=== PATIENT | female | born 1965 | race Caucasian/White ===

== ENCOUNTER 2017-12-09 10:14 | Emergency (ER) | payer BC ==
[2017-12-09 10:36] VITALS: BP 156/97; PULSE 83; O2SAT 98
--- NOTE | 2017-12-09 10:43 | ERPHSYRPT ---
- History of Present Illness Time Seen by Provider: 12/09/17 10:37 Source: patient Exam Limitations: no limitations Patient Subjective Stated Complaint: seen at [facility]. 2 weeks ago for sorethroat.. seen at [facility] last week. today was at [facility] for right ear pain and they sent here here for further eval. noted pain in right eart. noted swelling to right side of face. staets has difficulty closing eye lid 2 days ago.. numbness to the right upper lip.no difficulty speaking, swallowing. BEASLEY. senies other symptom. Triage Nursing Assessment: seen at [facility]. 2 weeks ago for sorethroat.. seen at [facility] last week. today was at [facility] for right ear pain and they sent here here for further eval. noted pain in right eart. noted swelling to right side of face. staets has difficulty closing eye lid 2 days ago.. numbness to the right upper lip.no difficulty Physician History: 52-year-old white female arrives with complaint of right ear pain times approximately 3 days, paresthesias to the right side of the nose right side of the upper lip, right side of the face for 3-4 days. She states she's noted slow closing of the right eye since yesterday. She states she's been having intermittent pain in her right ear for 2-3 days. Patient was seen by [facility] prior to arrival noted to have slow closing of the right eyelid. Patient was recently treated with steroids by Dr. Boswell for sore throat. Past medical history includes hypothyroidism. Past surgical history includes , hysterectomy. Social history patient denies tobacco, alcohol or illicit drug use. Timing/Duration: other (paresthesia face right ear pain 3-4 days slow closing right eye since yesterday) Modifying Factors: Improves With: nothing Associated Symptoms: other (paresthesia to face right side right ear pain slow closing right eye), No nausea, No vomiting, No abdominal pain, No shortness of breath, No heartburn, No diaphoresis, No cough, No chills, No chest pain, No fever, No headaches, No loss of appetite, No malaise, No rash, No syncope, No seizure, No weakness Allergies/Adverse Reactions: erythromycin base Allergy (Verified 11/20/15 14:05) Penicillins Allergy (Verified 11/20/15 14:05) Home Medications: Levothyroxine Sodium 150 Mcg [Synthroid 150 Mcg] 150 mcg PO DAILY 11/20/15 [History] Hx Tetanus, Diphtheria Vaccination/Date Given: No Hx Influenza Vaccination/Date Given: No Hx Pneumococcal Vaccination/Date Given: No - Review of Systems Constitutional: No Fever, No Chills Eyes: Other (right eye slow closing since yesterday), No Discharge, No Eye Pain , No Eye Redness, No Itchy, No Photophobia, No Tearing, No Vision Changes, No Double Vision, No Foreign Body Sensation Ears, Nose, & Throat: Ear Pain (right ear pain), Throat Pain (throat pain 2 weeks ago resolving), No Ear Discharge, No Hearing Changes, No Tinnitus, No Nose Pain, No Nose Congestion, No Nose Discharge, No Sinus Drainage, No Epistaxis, No Mouth Pain, No Mouth Swelling, No Loose Teeth, No Throat Swelling , No Hoarse, No Painful Swallowing, No Snoring Respiratory: No Cough, No Dyspnea Cardiac: No Chest Pain, No Edema, No Syncope Abdominal/Gastrointestinal: No Abdominal Pain, No Nausea, No Vomiting, No Diarrhea Genitourinary Symptoms: No Dysuria Musculoskeletal: No Back Pain, No Neck Pain Skin: No Rash Neurological: Other (paresthesia right side of nose and face) Psychological: No Symptoms Endocrine: No Symptoms All Other Systems: Reviewed and Negative - Past Medical History Pertinent Past Medical History: Yes Endocrine Medical History: Hypothyroidism - Past Surgical History Past Surgical History: Yes Female Surgical History: Section, Hysterectomy - Social History Smoking Status: Never smoker Exposure to second hand smoke: No Drug Use: none Patient Lives Alone: No - Nursing Vital Signs Nursing Vital Signs: Initial Vital Signs Temperature 98.0 F 12/09/17 10:26 Pulse Rate 83 12/09/17 10:26 Respiratory Rate 18 12/09/17 10:26 Blood Pressure 156/97 12/09/17 10:26 O2 Sat by Pulse Oximetry 98 12/09/17 10:26 Pain Scale Pain Intensity 0 - Physical Exam General Appearance: other ( well-developed well-nourished white female in no acute distress, scarring right forehead (old) Eye Exam: PERRL/EOMI, eyes nml inspection, other (right eye upper eyelid slow to close) Ears, Nose, Throat Exam: other (White fluid behind right tm) Neck Exam: normal inspection, non-tender, supple, full range of motion Respiratory Exam: normal breath sounds, lungs clear, No respiratory distress Cardiovascular Exam: regular rate/rhythm, normal heart sounds, normal peripheral pulses Gastrointestinal/Abdomen Exam: soft, normal bowel sounds, No tenderness, No mass Back Exam: normal inspection, normal range of motion, No CVA tenderness, No vertebral tenderness Extremity Exam: normal inspection, normal range of motion, pelvis stable Neurologic Exam: alert, oriented x 3, cooperative, sprayer automatic spray machine II-XII nml as tested, normal mood/affect, nml cerebellar function, nml station & gait, sensation nml, other (Patient is alert, oriented 3, cranial nerves II through XII intact, normal finger to nose, conductor sleeping car equal and symmetrical 2/4. No obvious facial nerve deficits however patient with scarring right forehead.No pronator drift sensation intact to all extremities), No motor deficits Skin Exam: normal color, warm, dry, No rash SpO2 Interpretation: normal (98%) SpO2: 98 Oxygen Delivery: Room Air - Course Nursing assessment & vital signs reviewed: Yes - Radiology Exams Chest X-ray Interpretation: Discussed w/ radiologist (normal heart, lungs and bony thorax) - CT Exams Head CT Interpretation: Negative (normal head ct) Ordered Tests: Active Orders 24 hr Category Date Time Status CHEST 1 VIEW (PORTABLE) Stat Exams 12/09/17 10:56 Completed HEAD WITHOUT CONTRAST [CT] Stat Exams 12/09/17 10:48 Completed - Progress Progress: improved Progress Note: 12/09/17 11:40 52-year-old white female who had had a sore throat approximately 2 weeks ago she 's been having right ear pain for 4 days paresthesia of the right side of the face especially the upper lip in the right side of the nose for 3-4 days states she was slow to close her right eye since yesterday. She was seen at [facility] noted to have slow closing of the right eyes sent to the emergency room. On physical examination patient has scarring of her right forehead making evaluation of a early loss of contractions of musculature in the right side of the difficult to evaluate. She does have slow closing of her right eye. I cannot appreciate obvious facial droop. Neurologically she is otherwise intact. I have done a head CT of this patient which is normal as well as a x-ray of her chest to rule out Angelique's which is also normal. I discussed the patient's case with Dr. Omero Boswell he states that patient had a markedly swollen throat in the past however she did not have strep he did state that she had increased monocytes. 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 Will go ahead and place patient on acyclovir 400 mg 5 times a day for [address] patient on a tapering dose of prednisone. Patient to follow-up with Dr. Boswell. Patient has been advised if she has trouble closing her right eye that she needs to consider taping it at night and/or using Lacri-Lube in the right eye. - Departure Time of Disposition: 11:43 Departure Disposition: Home Clinical Impression: right lid lag, Singleton's palsy Condition: Fair Critical Care Time: No Referrals: SOLANGE SIMS [Primary Care Provider] - Instructions: Singleton's Palsy (DC) Additional Instructions: Return home. Tapering dose of prednisone as directed. Acyclovir 400 mg 5 times a day for 10 days. Use Lacri-Lube in your right eye as needed. Considering taping your right eye shut at night if you cannot close it. Follow-up with Dr. Boswell, call and schedule an appointment. Return for acute distress or for severe symptoms.
--- NOTE | 2017-12-09 11:10 | XRAY ---
Indication: Facial numbness. Comparison: February 09, 2006. Portable chest again demonstrates normal heart, lungs, and bony thorax.
--- NOTE | 2017-12-09 11:12 | XRAY ---
Indication: Facial numbness. Right eyelid "lag." Multiple contiguous axial images obtained through the head without contrast. Comparison: None Normal appearing brain parenchyma, ventricles, and bony calvarium. Visualized paranasal sinuses and mastoid air cells are clear. Impression: Normal CT head without contrast exam. CT DI 69.52
== END 2017-12-09 11:58 | disposition home or self-care (01) ==
LOC: ED 10:14 → EEVIPCON 10:14 → ED 11:58
DX: H02.531 Eyelid retraction right upper eyelid (principal); G51.0 Bell's palsy; H92.01 Otalgia, right ear; E03.9 Hypothyroidism, unspecified
CPT/HCPCS: 70450; 71045; 99284

== ENCOUNTER 2018-07-16 09:39 | Emergency (ER) | payer BC, OTHER ==
--- NOTE | 2018-07-16 09:54 | ERPHSYRPT ---
- History of Present Illness Time Seen by Provider: 07/16/18 09:51 Source: patient Exam Limitations: no limitations Physician History: 53 y/o white female with h/o asthma is an employee at the [employer] and was exposed to unknown chemical exposure applied on mail for inmate. mail paper had oily substance. occurred [employer]. pt used her inhaler twice at the [employer]. sx include shakiness, left upper ext heaviness and numbness, throat tightness, tongue numbness,and sore throat. denies cp, denies abd pain, denies n/v/d. strong chemical odor Severity: mild Modifying Factors: Improves With: nothing Associated Symptoms: cough, No nausea, No vomiting, No abdominal pain, No shortness of breath, No weakness Allergies/Adverse Reactions: erythromycin base Allergy (Verified 07/16/18 10:18) Penicillins Allergy (Verified 07/16/18 10:18) Home Medications: Levothyroxine Sodium [Synthroid] 175 mcg PO DAILY 07/16/18 [History] Meloxicam 1 tab PO DAILY 07/16/18 [History] - Review of Systems Constitutional: No Symptoms Eyes: No Symptoms Ears, Nose, & Throat: No Symptoms Respiratory: Cough, No Dyspnea Cardiac: No Symptoms Abdominal/Gastrointestinal: No Symptoms, No Abdominal Pain, No Nausea, No Vomiting, No Diarrhea Genitourinary Symptoms: No Symptoms, No Dysuria, No Frequency, No Hematuria Musculoskeletal: No Symptoms Skin: No Symptoms Neurological: Other (left arm heaviness; shakiness) Psychological: No Symptoms Endocrine: No Symptoms Hematologic/Lymphatic: No Symptoms Immunological/Allergic: No Symptoms All Other Systems: Reviewed and Negative - Past Medical History Pertinent Past Medical History: Yes Neurological History: No Pertinent History ENT History: No Pertinent History Cardiac History: No Pertinent History Respiratory History: Asthma Endocrine Medical History: No Pertinent History Musculoskeletal History: No Pertinent History GI Medical History: No Pertinent History History: No Pertinent History Psycho-Social History: No Pertinent History - Past Surgical History Neuro Surgical History: No Pertinent History Cardiac: No Pertinent History Respiratory: No Pertinent History Gastrointestinal: No Pertinent History Genitourinary: No Pertinent History Musculoskeletal: No Pertinent History Female Surgical History: No Pertinent History - Nursing Vital Signs Nursing Vital Signs: Initial Vital Signs Temperature 97.6 F 07/16/18 10:06 Pulse Rate 73 07/16/18 10:06 Respiratory Rate 14 07/16/18 10:06 Blood Pressure 165/101 07/16/18 10:06 O2 Sat by Pulse Oximetry 100 07/16/18 10:06 Pain Scale Pain Intensity 0 - Physical Exam General Appearance: mild distress, alert, anxiety Eye Exam: PERRL/EOMI, eyes nml inspection Ears, Nose, Throat Exam: normal ENT inspection, moist mucous membranes Neck Exam: normal inspection, non-tender, supple, full range of motion Respiratory Exam: normal breath sounds, lungs clear, airway intact, No chest tenderness, No respiratory distress, No accessory muscle use, No rhonchi, No wheezing, No stridor Cardiovascular Exam: regular rate/rhythm, normal heart sounds, normal peripheral pulses Gastrointestinal/Abdomen Exam: soft, normal bowel sounds, No tenderness, No guarding Pelvic Exam: not done Rectal Exam: not done Back Exam: normal inspection, normal range of motion, CVA tenderness Extremity Exam: normal inspection, normal range of motion, pelvis stable Neurologic Exam: alert, oriented x 3, cooperative, library circulation technician II-XII nml as tested Skin Exam: normal color, warm, dry Lymphatic Exam: No adenopathy SpO2 Interpretation: normal O2 Delivery: Room Air - Course Nursing assessment & vital signs reviewed: Yes EKG Interpreted by Me: RATE (77), Sinus Rhythm, NORMAL AXIS, Right Bundle Branch Block, Other (left ant fascicular block) Ordered Tests: Active Orders 24 hr Category Date Time Status Modeling Teacher STAT Care 07/16/18 10:00 Active Clean Catch Urine Specimen STAT Care 07/16/18 09:59 Active EKG-ER Only STAT Care 07/16/18 09:59 Active IV Insertion STAT Care 07/16/18 09:59 Active NPO (ED) STAT Care 07/16/18 09:59 Active Oxygen-ED Only Nasal Cannula 2 lpm Care 07/16/18 09:59 Active CHEST 1 VIEW (PORTABLE) Stat Exams 07/16/18 09:59 Completed CBC W DIFF Stat Lab 07/16/18 10:08 Completed CMP Stat Lab 07/16/18 10:08 Completed MAGNESIUM Stat Lab 07/16/18 10:08 Completed UA W/RFX UR CULTURE Stat Lab 07/16/18 10:32 Completed Urine Triage Profile Stat Lab 07/16/18 11:35 Completed Peak Expiratory Flow Rate DAILY RT 07/16/18 10:18 Active Pulse Oximetry ROUTINE RT 07/16/18 10:18 Active Respiratory Therapy Assessment DAILY RT 07/17/18 10:18 Active Medication Summary Discontinued Medications Generic Name Dose Route Start Last Admin Trade Name Anthony HADDAD Reason Stop Dose Admin Acetaminophen 650 mg 07/16/18 10:51 07/16/18 10:56 Tylenol 325 Mg PO 07/16/18 10:52 650 mg STAT STA Administration Acetaminophen Confirm 07/16/18 10:54 Tylenol 325 Mg Administered 07/16/18 10:55 Dose 650 mg .ROUTE .STK-MED ONE Albuterol/Ipratropium Confirm 07/16/18 10:11 Duoneb 0.5-3 Mg/3 Ml Neb Administered 07/16/18 10:12 Dose 3 ml IH .STK-MED ONE Albuterol/Ipratropium 3 ml 07/16/18 10:18 07/16/18 10:18 Duoneb 0.5-3 Mg/3 Ml Neb IH 07/16/18 10:19 3 ml STAT ONE Administration Sodium Chloride Confirm 07/16/18 09:57 Sodium Chloride 0.9% 1000 Ml Administered 07/16/18 09:58 Dose 1,000 mls @ ud .ROUTE .STK-MED ONE Sodium Chloride Confirm 07/16/18 09:57 Sodium Chloride 0.9% 1000 Ml Administered 07/16/18 09:58 Dose 1,000 mls @ ud .ROUTE .STK-MED ONE Sodium Chloride 1,000 mls @ 999 mls/hr 07/16/18 09:59 07/16/18 11:36 Sodium Chloride 0.9% 1000 Ml IV 07/16/18 10:59 Infused .Q1H1M STA Infusion Methylprednisolone Sodium Succinate 125 mg 07/16/18 09:59 07/16/18 10:35 Solu-Medrol 125 Mg IV 07/16/18 10:00 125 mg STAT ONE Administration Methylprednisolone Sodium Succinate Confirm 07/16/18 10:34 Solu-Medrol 125 Mg Administered 07/16/18 10:35 Dose 125 mg .ROUTE .STK-MED ONE Ondansetron HCl 4 mg 07/16/18 10:00 07/16/18 10:35 Zofran 4 Mg/2 Ml Vial IV 07/16/18 10:01 4 mg STAT ONE Administration Ondansetron HCl Confirm 07/16/18 10:34 Zofran 4 Mg/2 Ml Vial Administered 07/16/18 10:35 Dose 4 mg .ROUTE .STK-MED ONE Lab/Rad Data: Laboratory Result Diagrams 07/16/18 10:08 07/16/18 10:08 Laboratory Results 07/16/18 07/16/18 07/16/18 Range/Units 11:35 10:32 10:08 WBC (4.0-10.5) K/mm3 RBC (4.1-5.4) M/mm3 Hgb (12.0-16.0) gm/dl Hct (35-47) % MCV (78-100) fl MCH (26-32) pg MCHC (32-36) g/dl RDW (11.5-14.0) % Plt Count (150-450) K/mm3 MPV (6-9.5) fl Gran % (36.0-66.0) % Eos # (Auto) (0-0.5) Absolute Lymphs (auto) (1.0-4.6) Absolute Monos (auto) (0.0-1.3) Lymphocytes % (24.0-44.0) % Monocytes % (0.0-12.0) % Eosinophils % (0.00-5.0) % Basophils % (0.0-0.4) % Absolute Granulocytes (1.4-6.9) Basophils # (0-0.4) Sodium 141 (137-145) mmol/L Potassium 3.5 (3.5-5.1) mmol/L Chloride 100 (98-107) mmol/L Carbon Dioxide 28 (22-30) mmol/L Anion Gap 15.9 H (5-15) MEQ/L BUN 16 (7-17) mg/dL Creatinine 0.89 (0.52-1.04) mg/dL Estimated GFR > 60.0 ML/MIN Glucose 104 (74-106) mg/dL Calcium 9.7 (8.4-10.2) mg/dL Magnesium 1.7 (1.6-2.3) mg/dL Total Bilirubin 0.60 (0.2-1.3) mg/dL AST 38 H (14-36) U/L ALT 32 (0-35) U/L Alkaline Phosphatase 71 (38-126) U/L Serum Total Protein 8.3 H (6.3-8.2) g/dL Albumin 4.7 (3.5-5.0) g/dL Urine Color YELLOW (YELLOW) Urine Appearance CLEAR (CLEAR) Urine pH 7.0 (5-6) Ur Specific [place] 1.004 (1.005-1.025) Urine Protein NEGATIVE (Negative) Urine Ketones NEGATIVE (NEGATIVE) Urine Blood NEGATIVE (0-5) John/ul Urine Nitrite NEGATIVE (NEGATIVE) Urine Bilirubin NEGATIVE (NEGATIVE) Urine Urobilinogen NEGATIVE (0-1) mg/dL Ur Leukocyte Esterase NEGATIVE (NEGATIVE) Urine WBC (Auto) NONE (0-5) /HPF Urine RBC (Auto) NONE (0-2) /HPF U Epithel Cells (Auto) RARE (FEW) /HPF Urine Bacteria (Auto) NONE SEEN (NEGATIVE) /HPF Urine Mucus (Auto) SLIGHT (NEGATIVE) /HPF Urine Culture Reflexed NO (NO) Urine Glucose NEGATIVE (NEGATIVE) mg/dL Urine Opiates Level NEGATIVE (NEGATIVE) Ur Methadone NEGATIVE (NEGATIVE) Urine Barbiturates NEGATIVE (NEGATIVE) Ur Phencyclidine (PCP) NEGATIVE (NEGATIVE) Urine Amphetamine NEGATIVE (NEGATIVE) U Benzodiazepine Level NEGATIVE (NEGATIVE) Urine Cocaine NEGATIVE (NEGATIVE) Urine Marijuana (THC) NEGATIVE (NEGATIVE) 07/16/18 Range/Units 10:08 WBC 5.0 (4.0-10.5) K/mm3 RBC 4.58 (4.1-5.4) M/mm3 Hgb 13.4 (12.0-16.0) gm/dl Hct 41.5 (35-47) % MCV 90.6 (78-100) fl MCH 29.3 (26-32) pg MCHC 32.3 (32-36) g/dl RDW 12.9 (11.5-14.0) % Plt Count 234 (150-450) K/mm3 MPV 9.4 (6-9.5) fl Gran % 52.5 (36.0-66.0) % Eos # (Auto) 0.37 (0-0.5) Absolute Lymphs (auto) 1.53 (1.0-4.6) Absolute Monos (auto) 0.44 (0.0-1.3) Lymphocytes % 30.8 (24.0-44.0) % Monocytes % 8.9 (0.0-12.0) % Eosinophils % 7.4 H (0.00-5.0) % Basophils % 0.4 (0.0-0.4) % Absolute Granulocytes 2.61 (1.4-6.9) Basophils # 0.02 (0-0.4) Sodium (137-145) mmol/L Potassium (3.5-5.1) mmol/L Chloride (98-107) mmol/L Carbon Dioxide (22-30) mmol/L Anion Gap (5-15) MEQ/L BUN (7-17) mg/dL Creatinine (0.52-1.04) mg/dL Estimated GFR ML/MIN Glucose (74-106) mg/dL Calcium (8.4-10.2) mg/dL Magnesium (1.6-2.3) mg/dL Total Bilirubin (0.2-1.3) mg/dL AST (14-36) U/L ALT (0-35) U/L Alkaline Phosphatase (38-126) U/L Serum Total Protein (6.3-8.2) g/dL Albumin (3.5-5.0) g/dL Urine Color (YELLOW) Urine Appearance (CLEAR) Urine pH (5-6) Ur Specific [place] (1.005-1.025) Urine Protein (Negative) Urine Ketones (NEGATIVE) Urine Blood (0-5) John/ul Urine Nitrite (NEGATIVE) Urine Bilirubin (NEGATIVE) Urine Urobilinogen (0-1) mg/dL Ur Leukocyte Esterase (NEGATIVE) Urine WBC (Auto) (0-5) /HPF Urine RBC (Auto) (0-2) /HPF U Epithel Cells (Auto) (FEW) /HPF Urine Bacteria (Auto) (NEGATIVE) /HPF Urine Mucus (Auto) (NEGATIVE) /HPF Urine Culture Reflexed (NO) Urine Glucose (NEGATIVE) mg/dL Urine Opiates Level (NEGATIVE) Ur Methadone (NEGATIVE) Urine Barbiturates (NEGATIVE) Ur Phencyclidine (PCP) (NEGATIVE) Urine Amphetamine (NEGATIVE) U Benzodiazepine Level (NEGATIVE) Urine Cocaine (NEGATIVE) Urine Marijuana (THC) (NEGATIVE) - Progress Progress: improved, re-examined Progress Note: 07/16/18 10:34 pt c/o chemical tasting sinus drainage 07/16/18 10:39 contacted [facility]. per internal affairs, they have quarnteed the letter in their evidence room. an official from [facility] to perform testing on letter at the facility. they are unable to provide me with a time frame for answer at to substance. 07/16/18 10:51 cxr-no acute process 07/16/18 13:37 pt feeling near normal. jamie pos. Counseled pt/family regarding: lab results, diagnosis, need for follow-up - Departure Departure Disposition: Home Clinical Impression: Exposure to chemical irritant Condition: Stable Critical Care Time: No Referrals: DOCTOR,NO FAMILY [Primary Care Provider] - Additional Instructions: drink plenty of fluids. take your medications as prescribed. return to ED if symptoms worsen. follow up with your primary doctor for persistent symptoms
[2018-07-16] MEDS ORDERED: Sodium Chloride 0.9% 1000 ML 1,000 ML ONE (09:57)
[2018-07-16] MEDS ORDERED: Sodium Chloride 0.9% 1000 ML 0 ML ONE (09:57)
[2018-07-16] MEDS ORDERED: DUONEB 0.5-3 MG/3 ml Neb IH ONE (10:11)
[2018-07-16 10:13] LABS: BASOPHIL % 0.4 % (0.0-0.4); Basophil (Absolute #) 0.02 (0-0.4); Eosinophil % 7.4 % (0.00-5.0); Eosinophil (Absolute #) 0.37 (0-0.5); Granulocyte Absolute (ANC) 2.61 (1.4-6.9); Granulocytes % 52.5 % (36.0-66.0); Hematocrit 41.5 % (35-47); Hemoglobin 13.4 gm/dl (12.0-16.0); Lymphocyte (Absolute #) 1.53 (1.0-4.6); Lymphocytes % 30.8 % (24.0-44.0); Mean Cell Volume 90.6 fl (78-100); Mean Corpuscular Hemoglobin 29.3 pg (26-32); Mean Corpuscular Hgb Concent. 32.3 g/dl (32-36); Mean Platelet Volume 9.4 fl (6-9.5); Monocyte (Absolute #) 0.44 (0.0-1.3); Monocytes % 8.9 % (0.0-12.0); Platelet Count 234 K/mm3 (150-450); Red Blood Count 4.58 M/mm3 (4.1-5.4); Red Cell Distribution Width 12.9 % (11.5-14.0)
[2018-07-16] MEDS: DUONEB 0.5-3 MG/3 ml Neb IH ONE (10:18)
[2018-07-16 10:26] LABS: ALBUMIN 4.7 g/dL (3.5-5.0); ALKALINE PHOSPHATASE 71 U/L (38-126); ANION GAP 15.9 MEQ/L (5-15); BLOOD UREA NITROGEN 16 mg/dL (7-17); CHLORIDE 100 mmol/L (98-107); Calcium 9.7 mg/dL (8.4-10.2); Carbon Dioxide 28 mmol/L (22-30); Creatinine 1 0.89 mg/dL (0.52-1.04); Glucose 104 mg/dL (74-106); MAGNESIUM 1.7 mg/dL (1.6-2.3); Potassium 3.5 mmol/L (3.5-5.1); SGOT/AST 38 U/L (14-36); SGPT/ALT 32 U/L (0-35); SODIUM 141 mmol/L (137-145); Total Protein 8.3 g/dL (6.3-8.2)
--- NOTE | 2018-07-16 10:31 | XRAY ---
Indication: Unknown chemical exposure. Comparison: None Portable chest demonstrates a few tiny calcified granulomas. Remaining heart, lungs, and bony thorax normal.
[2018-07-16] MEDS: Sodium Chloride 0.9% 1000 ML 1,000 ML IV STA (10:33)
[2018-07-16] MEDS ORDERED: solu-MEDROL 125 MG ONE (10:34)
[2018-07-16] MEDS ORDERED: Zofran 4 MG/2 ML VIAL ONE (10:34)
[2018-07-16] MEDS: Zofran 4 MG/2 ML VIAL IV ONE (10:35)
[2018-07-16] MEDS: solu-MEDROL 125 MG IV ONE (10:35)
[2018-07-16 10:48] LABS: Appearance CLEAR (CLEAR); Bilirubin NEGATIVE (NEGATIVE); Blood NEGATIVE Ery/ul (0-5); Epithelial Cells RARE /HPF (FEW); Glucose NEGATIVE (NEGATIVE); Ketones NEGATIVE (NEGATIVE); Leukocyte Esterase NEGATIVE (NEGATIVE); Mucus SLIGHT /HPF (NEGATIVE); Nitrite NEGATIVE (NEGATIVE); Protein,Urine Dip NEGATIVE (Negative); Specific Gravity 1.004 (1.005-1.025); Urobilinogen NEGATIVE mg/dL (0-1)
[2018-07-16 10:51] LABS: Bacteria NONE SEEN /HPF (NEGATIVE)
[2018-07-16] MEDS ORDERED: TYLENOL 325 MG ONE (10:54)
[2018-07-16] MEDS: TYLENOL 325 MG PO STA (10:56)
[2018-07-16 11:57] LABS: Amphetamine,Urine NEGATIVE (NEGATIVE); Barbiturate,Urine NEGATIVE (NEGATIVE); Benzodiazepine,Urine NEGATIVE (NEGATIVE); Cocaine,Urine NEGATIVE (NEGATIVE); Methadone,Urine NEGATIVE (NEGATIVE); Opiate,Urine NEGATIVE (NEGATIVE); PCP,Urine NEGATIVE (NEGATIVE); THC,Urine NEGATIVE (NEGATIVE)
[2018-07-16 12:18] VITALS: PULSE 88; O2SAT 100
[2018-07-16 13:52] VITALS: BP 142/91
== END 2018-07-16 14:30 | disposition home or self-care (01) ==
LOC: MERGE 09:39 → ED 09:39
DX: Z77.098 Contact with and (suspected) exposure to other hazardous, chiefly nonmedicinal, chemicals (principal)
CPT/HCPCS: 36415; 71045; 80053; 80307; 81001; 83735; 85025; 93005; 93041; 94150; 94640; 94760; 96360; 96374; 96375; 99284; J2405; J2930; A9270-GY

== ENCOUNTER 2018-07-18 15:15 | Emergency (ER) | payer OTHER ==
[2018-07-18] MEDS ORDERED: Pepcid 20 MG VIAL IV ONE ×2 (15:44→15:51)
[2018-07-18] MEDS ORDERED: Sodium Chloride 0.9% 1000 ML 1,000 ML IV STA (15:44)
--- NOTE | 2018-07-18 15:44 | ERPHSYRPT ---
- History of Present Illness Time Seen by Provider: 07/18/18 15:42 Source: patient Exam Limitations: no limitations Patient Subjective Stated Complaint: states last thursday was exposed at work at the [employer] to a white powdery substance that was in an envelope that was delivered to the assisted. was seen in er at that time. states the leonie stevenson told her they think the white powder was a farm pesticide. today is having increased flushing of face, nausea and diarrhea. reports four loose stools today. Triage Nursing Assessment: ambulated to room per self. skin w/d, color flushed , resp nonlabored. abd soft, hyperactive bowel sounds heard. Physician History: states last thursday was exposed at work at the [employer] [employer] to a white powdery substance that was in an envelope that was delivered to the assisted. was seen in er at that time. states the leonie stevenson told her they think the white powder was a farm pesticide. today is having increased flushing of face, nausea and diarrhea. reports four loose stools today. Patient was seen in ER 2 days ago when this incidence happened. All labs were WNL. Associated Symptoms: nausea, other (diarrhea, acid reflux) Allergies/Adverse Reactions: erythromycin base Allergy (Verified 07/18/18 15:37) Penicillins Allergy (Verified 07/18/18 15:37) Home Medications: Levothyroxine Sodium [Synthroid] 175 mcg PO DAILY 07/16/18 [History] Meloxicam 1 tab PO DAILY 07/16/18 [History] Hx Tetanus, Diphtheria Vaccination/Date Given: No Hx Influenza Vaccination/Date Given: No Hx Pneumococcal Vaccination/Date Given: No - Past Medical History Pertinent Past Medical History: Yes Neurological History: No Pertinent History ENT History: No Pertinent History Cardiac History: No Pertinent History Respiratory History: Asthma Endocrine Medical History: No Pertinent History Musculoskeletal History: No Pertinent History GI Medical History: No Pertinent History History: No Pertinent History Psycho-Social History: No Pertinent History - Past Surgical History Past Surgical History: Yes Neuro Surgical History: No Pertinent History Cardiac: No Pertinent History Respiratory: No Pertinent History Gastrointestinal: No Pertinent History Genitourinary: No Pertinent History Musculoskeletal: No Pertinent History Female Surgical History: No Pertinent History - Social History Smoking Status: Never smoker Exposure to second hand smoke: No Drug Use: none Patient Lives Alone: No - Female History Hx Now: No - Nursing Vital Signs Nursing Vital Signs: Initial Vital Signs Temperature 97.3 F 07/18/18 15:22 Pulse Rate 73 07/18/18 15:22 Respiratory Rate 18 07/18/18 15:22 Blood Pressure 153/97 07/18/18 15:22 O2 Sat by Pulse Oximetry 100 07/18/18 15:22 Pain Scale Pain Intensity 7 - Physical Exam General Appearance: no apparent distress, alert Eye Exam: PERRL/EOMI, eyes nml inspection Ears, Nose, Throat Exam: normal ENT inspection, TMs normal, pharynx normal, moist mucous membranes Neck Exam: normal inspection, non-tender, supple, full range of motion Respiratory Exam: normal breath sounds, lungs clear, No respiratory distress Cardiovascular Exam: regular rate/rhythm, normal heart sounds, normal peripheral pulses Gastrointestinal/Abdomen Exam: soft, normal bowel sounds, No tenderness, No mass Back Exam: normal inspection, normal range of motion, No CVA tenderness, No vertebral tenderness Extremity Exam: normal inspection, normal range of motion, pelvis stable Neurologic Exam: alert, oriented x 3, cooperative, normal mood/affect, nml cerebellar function, nml station & gait, sensation nml, No motor deficits Skin Exam: normal color, warm, dry, No rash Lymphatic Exam: No adenopathy SpO2: 100 - Course Nursing assessment & vital signs reviewed: Yes Ordered Tests: Active Orders 24 hr Category Date Time Status BMP Stat Lab 07/18/18 15:55 Completed CBC W DIFF Stat Lab 07/18/18 15:55 Completed Medication Summary Generic Name Dose Route Start Last Admin Trade Name Freq PRN Reason Stop Dose Admin Sodium Chloride 1,000 mls @ 999 mls/hr 07/18/18 15:44 07/18/18 15:53 Sodium Chloride 0.9% 1000 Ml IV 07/18/18 16:44 999 mls/hr .Q1H1M STA Administration Discontinued Medications Generic Name Dose Route Start Last Admin Trade Name Freq PRN Reason Stop Dose Admin Famotidine 20 mg 07/18/18 15:44 07/18/18 15:53 Pepcid 20 Mg Vial IV 07/18/18 15:45 20 mg STAT ONE Administration Famotidine Confirm 07/18/18 15:51 Pepcid 20 Mg Vial Administered 07/18/18 15:52 Dose 20 mg IV .STK-MED ONE Sodium Chloride Confirm 07/18/18 15:51 Sodium Chloride 0.9% 1000 Ml Administered 07/18/18 15:52 Dose 1,000 mls @ .ROUTE .[facility] ONE Lab/Rad Data: Laboratory Result Diagrams 07/18/18 15:55 07/18/18 15:55 Laboratory Results 07/18/18 07/18/18 Range/Units 15:55 15:55 WBC 6.8 (4.0-10.5) K/mm3 RBC 4.35 (4.1-5.4) M/mm3 Hgb 12.6 (12.0-16.0) gm/dl Hct 39.5 (35-47) % MCV 90.8 (78-100) fl MCH 29.0 (26-32) pg MCHC 31.9 L (32-36) g/dl RDW 12.9 (11.5-14.0) % Plt Count 237 (150-450) K/mm3 MPV 9.4 (6-9.5) fl Gran % 62.8 (36.0-66.0) % Eos # (Auto) 0.20 (0-0.5) Absolute Lymphs (auto) 1.86 (1.0-4.6) Absolute Monos (auto) 0.45 (0.0-1.3) Lymphocytes % 27.4 (24.0-44.0) % Monocytes % 6.6 (0.0-12.0) % Eosinophils % 2.9 (0.00-5.0) % Basophils % 0.3 (0.0-0.4) % Absolute Granulocytes 4.25 (1.4-6.9) Basophils # 0.02 (0-0.4) Sodium 141 (137-145) mmol/L Potassium 3.8 (3.5-5.1) mmol/L Chloride 104 (98-107) mmol/L Carbon Dioxide 30 (22-30) mmol/L Anion Gap 10.7 (5-15) MEQ/L BUN 20 H (7-17) mg/dL Creatinine 0.88 (0.52-1.04) mg/dL Estimated GFR > 60.0 ML/MIN Glucose 89 (74-106) mg/dL Calcium 9.6 (8.4-10.2) mg/dL - Progress Progress: improved Counseled pt/family regarding: lab results, diagnosis, need for follow-up - Departure Departure Disposition: Home Clinical Impression: Exposure to chemical irritant Gastritis Qualifiers: Gastritis type: other gastritis Chronicity: acute Gastritis bleeding: without bleeding Qualified Code(s): K29.00 - Acute gastritis without bleeding Diarrhea Qualifiers: Diarrhea type: unspecified type Qualified Code(s): R19.7 - Diarrhea, unspecified Condition: Stable Critical Care Time: No Referrals: DOCTOR,NO FAMILY [Primary Care Provider] - Additional Instructions: JOSEPH SIFUENTES was seen on 07/18/18 n the Emergency Room. At that time you were treated for an emergent condition, during your visit Laboratory, Radiology and/ or other procedures may have been ordered. It is very important that you follow- up with your Primary Care Physician NO FAMILY DOCTOR within the next 24-48 hours to review your Emergency Room visit and the final results of testing that was ordered. Some test results such as Urine Cultures, Blood Cultures, and other cultures if ordered will not be finalized for 24-48 hours. If you do not have a Primary Care Provider please call the medical records department at [phone] ext [phone] to obtain a copy of your results or you may sign into our patient portal to obtain these results by visiting us @ [email or web address] and completing the following steps: 1. Click on the Patient Portal link 2. Click the Patient Self Enrollment Link to complete the enrollment form and entering your 3. Once the enrollment form is completed you will receive an email with a temporary ID and password at the email address you provided. 4. Next choose a user name and password. Your user name must be at least 4 characters long and your password must be at least 4 characters long. 5. Choose a security question from the list and provide your answer to the question. If you already have signed into the Health Portal you may access your Health Care Information 27/10 by the following steps: 1. Login to our website @ [email or web address] 2. Enter your original user name and password. FAQS The [facility] Portal is an online tool that contains your Lab Results, Radiology Reports, Visit History, Discharge Instructions and Health Summary Lab and Radiology Results will not be available for 72 hours on the portal. The Portal is a secure site, passwords are encryted and URLs are re-written so they cannot be copied and pasted. You and authorized family members are the only ones who can access your Portal. Also there is a timeout feature that protects your information if you leave the Portal page open. If you have technical difficulty please use the Contact Us link on the page this will allow you to submit any questions you have regarding the Portal or you may contact the Medical Record Department at [phone] ext [phone]. Prescriptions: Esomeprazole Magnesium [Nexium 24Hr] 20 mg PO BID #20 capsule.
[2018-07-18] MEDS ORDERED: Sodium Chloride 0.9% 1000 ML 1,000 ML ONE (15:51)
[2018-07-18 15:59] LABS: BASOPHIL % 0.3 % (0.0-0.4); Basophil (Absolute #) 0.02 (0-0.4); Eosinophil % 2.9 % (0.00-5.0); Granulocyte Absolute (ANC) 4.25 (1.4-6.9); Granulocytes % 62.8 % (36.0-66.0); Hematocrit 39.5 % (35-47); Hemoglobin 12.6 gm/dl (12.0-16.0); Lymphocyte (Absolute #) 1.86 (1.0-4.6); Lymphocytes % 27.4 % (24.0-44.0); Mean Cell Volume 90.8 fl (78-100); Mean Corpuscular Hgb Concent. 31.9 g/dl (32-36); Mean Platelet Volume 9.4 fl (6-9.5); Monocyte (Absolute #) 0.45 (0.0-1.3); Monocytes % 6.6 % (0.0-12.0); Platelet Count 237 K/mm3 (150-450); Red Blood Count 4.35 M/mm3 (4.1-5.4); Red Cell Distribution Width 12.9 % (11.5-14.0); White Blood Count 6.8 K/mm3 (4.0-10.5)
[2018-07-18 16:08] LABS: ANION GAP 10.7 MEQ/L (5-15); BLOOD UREA NITROGEN 20 mg/dL (7-17); CHLORIDE 104 mmol/L (98-107); Calcium 9.6 mg/dL (8.4-10.2); Carbon Dioxide 30 mmol/L (22-30); Creatinine 1 0.88 mg/dL (0.52-1.04); Glucose 89 mg/dL (74-106); Potassium 3.8 mmol/L (3.5-5.1); SODIUM 141 mmol/L (137-145)
[2018-07-18 16:52] VITALS: BP 142/78; PULSE 72; O2SAT 99
== END 2018-07-18 16:53 | disposition home or self-care (01) ==
LOC: MERGE 15:15 → ED 15:15
DX: Z77.098 Contact with and (suspected) exposure to other hazardous, chiefly nonmedicinal, chemicals (principal); K29.00 Acute gastritis without bleeding; R19.7 Diarrhea, unspecified; Z79.899 Other long term (current) drug therapy
CPT/HCPCS: 36000; 36415; 80048; 85025; 96360; 96374; 99284

== ENCOUNTER 2019-03-22 09:18 | Emergency (ER) | payer BC, OTHER ==
--- NOTE | 2019-03-22 09:33 | ERPHSYRPT ---
- History of Present Illness Time Seen by Provider: 03/22/19 09:24 Source: patient, other (half-way guards) Exam Limitations: no limitations Physician History: The patient is a 53-year-old female with a past medical history significant for reported mild asthma presents with a chief complaint of a possible chemical exposure. 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 She stated she opened a letter to light her prisoner that was some type of legal document and when she opened them up she reportedly is became short of breath, started experiencing burning of the eyes, and started to experience a sore throat. She was not wearing gloves during the incident. There is no reported powder on the letter or an envelope for an air upon opening them below. She did not notice any specific chemical substance on the letter or the envelope. She presumed her symptoms were due to a chemical exposure that may trigger her asthma and take a history from her albuterol MDI with some relief in her symptoms and reportedly has felt "shaky" since that time. Because of a possible chemical exposure, the half-way officials decided to have her transported to the emergency department for further evaluation and management and had a fisheries technical officer drive her vehicle POV to the emergency department. The patient underwent decontamination prior to him in the emergency department and had her clothing removed and was washed from head to toe appropriately per the ED policy. Currently she has no additional symptoms. Timing/Duration: today Severity: mild Associated Symptoms: shortness of breath, cough, No nausea, No vomiting, No abdominal pain, No chills, No chest pain, No fever, No headaches, No rash, No syncope, No weakness Allergies/Adverse Reactions: erythromycin base Allergy (Verified 03/22/19 09:19) Penicillins Allergy (Verified 03/22/19 09:19) Home Medications: Levothyroxine Sodium 150 Mcg [Synthroid 150 Mcg] 150 mcg PO DAILY 11/20/15 [History] Levothyroxine Sodium [Synthroid] 175 mcg PO DAILY 07/16/18 [History] Meloxicam 1 tab PO DAILY 07/16/18 [History] Hx Tetanus, Diphtheria Vaccination/Date Given: No Hx Influenza Vaccination/Date Given: No Hx Pneumococcal Vaccination/Date Given: No - Review of Systems Constitutional: No Symptoms, No Fever Eyes: Eye Pain, Other (Burning of the eyes) Ears, Nose, & Throat: Throat Pain, No Ear Pain Respiratory: Cough, Dyspnea Cardiac: No Symptoms, No Chest Pain, No Edema Abdominal/Gastrointestinal: No Abdominal Pain, No Nausea, No Vomiting Genitourinary Symptoms: No Symptoms Musculoskeletal: No Symptoms Skin: No Symptoms Neurological: No Symptoms Psychological: No Symptoms All Other Systems: Reviewed and Negative - Past Medical History Pertinent Past Medical History: Yes Neurological History: No Pertinent History ENT History: No Pertinent History Cardiac History: No Pertinent History Respiratory History: Asthma Endocrine Medical History: No Pertinent History, Hypothyroidism Musculoskeletal History: No Pertinent History GI Medical History: No Pertinent History History: No Pertinent History Psycho-Social History: No Pertinent History - Past Surgical History Past Surgical History: Yes Neuro Surgical History: No Pertinent History Cardiac: No Pertinent History Respiratory: No Pertinent History Gastrointestinal: No Pertinent History Genitourinary: No Pertinent History Musculoskeletal: No Pertinent History Female Surgical History: No Pertinent History, Hysterectomy, Section - Social History Smoking Status: Never smoker Exposure to second hand smoke: No Drug Use: none Patient Lives Alone: No - Nursing Vital Signs Nursing Vital Signs: Initial Vital Signs Temperature 98.1 F 03/22/19 09:26 Pulse Rate 78 03/22/19 09:26 Respiratory Rate 18 03/22/19 09:26 Blood Pressure 144/89 03/22/19 09:26 O2 Sat by Pulse Oximetry 97 03/22/19 09:26 Pain Scale Pain Intensity 0 - Physical Exam General Appearance: no apparent distress, alert Eye Exam: PERRL/EOMI, eyes nml inspection, EOM palsy/anisocoria, No scleral icterus, No pale conjunctivae Ears, Nose, Throat Exam: normal ENT inspection, pharynx normal Neck Exam: normal inspection, supple, No non-tender Respiratory Exam: normal breath sounds, lungs clear, airway intact, No chest tenderness, No respiratory distress, No diminished breath sounds, No accessory muscle use Cardiovascular Exam: regular rate/rhythm, normal heart sounds, normal peripheral pulses, capillary refill <2 sec, No murmur, No friction rub, No gallop Gastrointestinal/Abdomen Exam: soft, No tenderness, No distention, No mass Rectal Exam: deferred Back Exam: normal inspection Extremity Exam: normal inspection Neurologic Exam: alert, oriented x 3, cooperative, normal mood/affect Skin Exam: normal color, warm, dry, No rash, No petechiae, No jaundice, No cyanosis, No jaundice SpO2 Interpretation: normal O2 Delivery: Room Air - Radiology Exams Chest X-ray Interpretation: Interpreted by me, Reviewed by me, Negative (Radiologist also noted negative exam on CXR) Ordered Tests: Active Orders 24 hr Category Date Time Status CHEST 2 VIEWS (PA AND LAT) Stat Exams 03/22/19 09:45 Completed - Progress Progress Note: 03/22/19 10:59 Nontoxic in appearance. The patient's exam is relatively reassuring and overwhelming normal. I suspect the patient may be a bit anxious given her clinical situation, but otherwise has no respiratory complaints, burning eyes or sore throat at this time. It is possible that she may have suffered from a mild bronchospasm that was relieved and she administered her albuterol MDI. Unfortunately, there is no way for me to prove she was exposed to a chemical substance even by laboratory workup and the patient understands this. I plan observe the patient for 2 hours and obtain a chest x-ray. After this brief observation period if the patient remains asymptomatic and her chest x-ray is normal she'll be discharged home to follow with her primary care provider on an as-needed basis. She requested a refill on her albuterol inhaler 03/22/19 11:15 The patient was reassessed the findings he is in no obvious distress. Lung sounds were clear and equal bilateral with no increased work of breathing or hypoxia. The patient was discharged with instructions to follow-up with her primary care provider on an as-needed basis. A refill for her albuterol was provided in addition to instructions on how to use an inhaler properly as well as instructions to use a spacer when using her MDI which the patient reportedly has not. Counseled pt/family regarding: diagnosis, need for follow-up, rad results - Departure Departure Disposition: In-patient Admission, Extended Care Facility Clinical Impression: Encounter for medical screening examination, Exposure to chemical irritant Condition: Good Critical Care Time: No Referrals: SOLANGE SIMS [ACTIVE STAFF] - Instructions: Chemical Exposure to the Skin (DC) Prescriptions: Albuterol Sulfate [Proair Respiclick] 90 mcg IH Q2H/PRN PRN #1 [email or web address] PRN Reason: Shortness Of Breath/Wheezing
--- NOTE | 2019-03-22 10:19 | XRAY ---
Indication: Dyspnea following chemical exposure. Comparison: December 09, 2017. PA/lateral chest again demonstrates normal heart and lungs. Bony thorax intact. No new/acute findings.
[2019-03-22 11:06] VITALS: BP 129/78; PULSE 76
[2019-03-22 12:24] VITALS: O2SAT 97
== END 2019-03-22 12:23 | disposition home or self-care (01) ==
LOC: ED 09:18
DX: Z77.098 Contact with and (suspected) exposure to other hazardous, chiefly nonmedicinal, chemicals (principal); Y92.148 Other place in prison as the place of occurrence of the external cause
CPT/HCPCS: 71046; 99283